=== PATIENT | female | born 1990 | race Caucasian/White ===

== ENCOUNTER 2017-11-21 15:53 | Emergency (ER) | payer OTHER ==
[2017-11-21] MEDS ORDERED: Bacitracin Zinc 1 Packet ONE (16:11)
[2017-11-21 17:57] LABS: HIV (1/2) Antibody/Antigen Non-Reactive (NonReactive); HIV 1/2 INDEX 0.22 S/CO (<1.00); Hep C IgG Ab Non-Reactive (NonReactive); Hep C Index 0.11 S/CO (0-0.79)
[2017-11-21 18:47] LABS: Hep B Surf AB Reactive (NonReactive)
[2017-11-21 18:48] LABS: HBSAB Concentration 478.12 mIU/mL
== END 2017-11-21 16:44 | disposition home or self-care (01) ==
LOC: ERS 15:53
DX: S50.811A Abrasion of right forearm, initial encounter (principal); E03.9 Hypothyroidism, unspecified; Z57.8 Occupational exposure to other risk factors; X58.XXXA Exposure to other specified factors, initial encounter
CPT/HCPCS: 36415; 86706; 86803; 87389; 99283

== ENCOUNTER → 2018-10-26 | Day surgery (SDC) | payer BC ==
[2018-10-26 16:35] VITALS: BMI 34.2
[2018-10-26 18:11] LABS: Bilirubin Negative (Negative); Blood, Urine Negative (Negative); Clarity CLEAR (Clear); Glucose, Urine (Dipstick) Negative (Negative); Leukocyte Moderate (Negative); Nitrite Negative (Negative); Protein, Urine (Dipstick) Negative (Neg-Trace); Specific Gravity, Urine 1.009 (1.002-1.036); Urobilinogen 0.2 mg/dL (0.2-1.0); pH, Urine 7.5 (5.0-9.0)
[2018-10-26 18:16] LABS: Bacteria/HPF Rare-Few HPF (None Seen); Hyaline Casts/LPF 0-3 HYALINE CAST LPF (0-3 Hyaline); Pathc Cast-AUWi Flag 0.14 (0-2.49); RBC/HPF 0-3 HPF (0-3); Squamous Epithelial 0-3 HPF (0-3)
[2018-10-26 18:49] LABS: #Eosinphils 0.1 thou/uL (0.0-0.7); #Lymphocytes 2.3 thou/uL (1.20-3.40); #Neutrophils 11.5 thou/uL (1.40-6.50); %Basophils 0.2 % (0.0-1.0); %Eosinophils 0.7 % (0.0-10.0); %Lymphocytes 15.2 % (21.0-51.0); %Monocytes 6.4 % (0.0-10.0); %Neutrophils 77.5 % (42.0-75.0); Hemoglobin 12.4 g/dL (12.0-16.0); Mean Corpuscular HGB CONC 34.2 g/dL (32.0-36.0); Mean Corpuscular Hemoglobin 31.7 pg (27.0-31.0); Mean Corpuscular Volume 92.9 fL (78.0-98.0); Mean Platelet Volume 8.2 fL (7.4-10.4); Platelet Count 208 thou/uL (130-400); RBC Distribution Width 12.6 % (11.5-14.5); Red Blood Cell (RBC) Count 3.92 mill/uL (4.20-5.40); White Blood Cell (WBC) Count 14.8 thou/uL (4.8-10.8)
[2018-10-26 19:07] LABS: ALT (SGPT) 20 U/L (8-55); AST (SGOT) 20 U/L (5-34); Albumin 3.3 g/dL (3.5-5.0); Alkaline Phosphatase 123 U/L (40-150); Anion Gap 13 mmol/L (10-20); BUN (Urea Nitrogen) 8 mg/dL (7.0-18.7); Bilirubin, Total 0.2 mg/dL (0.2-1.2); Calc. Creatinine Clearance 215 mL/min (70-130); Calcium 9.8 mg/dL (7.8-10.44); Carbon Dioxide 23 mmol/L (22-29); Chloride 105 mmol/L (98-107); Estimated GFR-MDRD Greater than 90; Glucose 83 mg/dL (70-105); Potassium 3.9 mmol/L (3.5-5.1); Protein, Total 6.3 g/dL (6.0-8.3); Sodium 137 mmol/L (136-145)
--- NOTE | 2018-10-27 08:30 | SS ---
DATE OF ADMISSION: 10/26/2018 DATE OF DISCHARGE: 10/26/2018 LABOR AND DELIVERY TRIAGE NOTE REGULAR PHYSICIAN: Minnie Lyon MD EVALUATING PHYSICIAN: Osbaldo Dudley MD CHIEF COMPLAINT: Elevated blood pressures in clinic. HISTORY OF PRESENT ILLNESS: Ms. Oswald is a 28-year-old white G1, P0 with an estimated date of confinement of 11/10/2018, who was seen at [facility] today with elevated blood pressures. Blood pressures there were apparently 140/72 and 142/78. She denies headache or visual changes. She denies contractions or leakage of fluid. Her care has been with Dr. Lyon and has been uncomplicated. PAST MEDICAL HISTORY: Hypothyroidism. CURRENT MEDICATIONS: 1. vitamins. 2. Synthroid 0.125 mg daily. PAST SURGICAL HISTORY: Open reduction of her fracture of her left hand. ALLERGIES: NO KNOWN ALLERGIES. SOCIAL HISTORY: She denies tobacco, alcohol, or drug use. PHYSICAL EXAMINATION: VITAL SIGNS: Blood pressures in triage are reassuring. Initial blood pressure is 112/73. She is afebrile. ABDOMEN: Soft and nontender. PELVIS: heart rate tracing is reassuring with spontaneous accelerations. There are no decelerations. An occasional uterine contraction is seen. LABORATORY DATA: White count 14.8, hemoglobin and hematocrit 12.4 and 36.4 respectively, and platelet count 208,000. Chemistries show a creatinine of 0.66. Total bilirubin 0.2. AST and ALT are both normal at 20 and 20 respectively. Urinalysis shows no urinary protein. ASSESSMENT: 1. 38-week intrauterine . 2. No evidence of preeclampsia at this time. PLAN: The patient will be discharged to home. Preeclampsia precautions were reviewed with her in detail, and she is told to return for headache, blurry vision, or right upper quadrant pain. She voices understanding of her discharge instructions. She is a nurse. She is discharged home in good condition. Job ID: [id number]
== END ==
LOC: L&D/OP 15:51
PROVIDERS: ATTEND Student in an Organized Health Care Education/Training Program
DX: O99.89 Other specified diseases and conditions complicating pregnancy, childbirth and the puerperium (principal); R03.0 Elevated blood-pressure reading, without diagnosis of hypertension; Z3A.38 38 weeks gestation of pregnancy
CPT/HCPCS: 36415; 80053; 81001; 85025

== ENCOUNTER 2018-11-10 11:33 | Inpatient (IN) | payer BC ==
[2018-11-15] MEDS ORDERED: Bupivacaine 0.25% HCL 30 ML VIAL ONE (11:11)
[2018-11-15] MEDS: Lactated Ringer's 1,000 ML IV SCH (23:50)
[2018-11-16] MEDS ORDERED: HYDROcodone/Acetaminophen 5/325 mg Tablet PO PRN (00:03)
[2018-11-16] MEDS ORDERED: Ondansetron PF 4 MG/2 ML Vial IVP PRN ×2 (00:03→21:25)
[2018-11-16] MEDS ORDERED: NS w/ Oxytocin 10 units 500 ML IV SCH (00:03)
[2018-11-16] MEDS ORDERED: Misoprostol 200 MCG TAB PR PRN (00:03)
[2018-11-16] MEDS ORDERED: Acetaminophen 500 MG TAB PO PRN (00:03)
[2018-11-16] MEDS ORDERED: Promethazine HCl 25 MG/ML VIAL IM PRN (00:03)
[2018-11-16] MEDS ORDERED: Lidocaine 1% (PF) 30 ML VIAL SC PRN (00:03)
[2018-11-16] MEDS ORDERED: Carboprost 250 MCG/ML AMP IM PRN (00:03)
[2018-11-16] MEDS ORDERED: Methylergonovine 0.2 MG/ML VIAL IM PRN (00:03)
[2018-11-16] MEDS ORDERED: Ibuprofen 800 MG TAB PO PRN (00:03)
[2018-11-16] MEDS ORDERED: Diphenoxylate HCl/Atropine Tablet PO PRN (00:03)
[2018-11-16 00:20] LABS: Hemoglobin 13.1 g/dL (12.0-16.0); Mean Corpuscular HGB CONC 33.1 g/dL (32.0-36.0); Mean Corpuscular Hemoglobin 30.9 pg (27.0-31.0); Mean Corpuscular Volume 93.2 fL (78.0-98.0); Mean Platelet Volume 8.9 fL (7.4-10.4); Platelet Count 209 thou/uL (130-400); RBC Distribution Width 12.3 % (11.5-14.5); Red Blood Cell (RBC) Count 4.24 mill/uL (4.20-5.40); White Blood Cell (WBC) Count 16.4 thou/uL (4.8-10.8)
[2018-11-16] MEDS: Misoprostol 100 MCG TAB VAG SCH ×3 (00:25→06:43)
[2018-11-16 00:58] VITALS: BMI 34.0
[2018-11-16 01:02] LABS: Syphilis Antibody Nonreactive (Nonreactive); Syphilis Antibody Index 0.05 S/CO (<1.00 Non-Reactive)
[2018-11-16 01:03] LABS: HBSAg Index 0.32 S/CO (0-0.99); Hep B Surf Ag Non-Reactive S/CO (NonReactive)
[2018-11-16] MEDS: Lactated Ringer's 1,000 ML IV SCH ×3 (06:43→11:30)
[2018-11-16] MEDS: Butorphanol Tartrate 1 MG/ML VIAL SLOW IVP PRN ×2 (07:08→09:00)
[2018-11-16] MEDS ORDERED: Fentanyl 4 mcg/Bup 0.1% Cadd 100 ML ONE ×2 (07:56→15:38)
--- NOTE | 2018-11-16 08:07 | PDOC.LDHP ---
Labor and Delivery H&P Chief complaint: scheduled induction HPI: 28yo at 40w6d by LMP for IOL. s/p 2 cytotec overnight, SROM 0620, clear, + painful contractions Current gestational age (weeks): 40 Due date: 11/10/18 Dating criteria: last menstrual period Grav: 1 Para: 0 Current complications: none Abnormal US findings: No Past Medical History: hypothyroid, scoliosis Current medications: pre- vitamins, other (levothyroxine 125mcg) Previous surgical history: other (left hand surgery) Allergies/Adverse Reactions: Allergies Allergy/AdvReac Type Severity Reaction Status Date / Time No Known Allergies Allergy Verified 11/15/18 23:38 Social history: none - Physical Exam Vital signs reviewed and normal: yes General: breathing through contractions Heart: RRR Lungs: CTAB Abdomen: gravid Extremeties: no edema FHT: category 1 Kieler contractions every: 2-3min - Vaginal Exam cm dilated: 3 Effacement: 75% Station: -1 (by RN) - OB Labs Blood type: A RH: positive Antibody Screen: negative HIV: negative RPR: negative HEPSAg: negative 1 hour GCT: negative GBS: negative Urine drug screen: negative Rubella: immune - Assessment L&D Assessment: medically indicated induction - Plan Plan: admit to L&D, cervical ripening, labor augmentation if indicated, informed consent obtained, anesthesia consult for pain management
[2018-11-16] MEDS: NS / Oxytocin 40 units/1000ml 1,000 ML IV PRN ×2 (16:50→19:45)
--- NOTE | 2018-11-16 17:17 | PDOC.OPDEL ---
OB Operative/Delivery Note Delivery Dr/Surgeon: Sonali Assist: Count, MS3 Pre-Delivery Diagnosis: medically indicated induction Procedure/Post Delivery Dx: spontaneous vaginal delivery Weeks gestation: 40 Anesthesia: epidural - Findings A Sex: male Weight: 8 lb 13 oz - 1 min: 9 - 5 min: 9 - Additional Findings/Plan Placenta delivered: spontaneous Repaired Obstetrical Laceration: 1st degree Estimated blood loss: 904 qbl cc Compilations/Other Findings: uterine atony several minutes after finishing delivery/repair, Dr Thomsa called and did manual sweep of uterus to clear out clots and bladder was drained , steady trickle of blood was resolved following this and fundus was firm. Post delivery plan: routine recovery
[2018-11-16] MEDS ORDERED: Milk Of Magnesia 30 ML UDCUP PO PRN (21:25)
[2018-11-16] MEDS ORDERED: diphenhydrAMINE 25 MG CAP PO PRN (21:25)
[2018-11-16] MEDS ORDERED: NS / Oxytocin 40 units/1000ml 1,000 ML IV SCH (21:25)
[2018-11-16] MEDS ORDERED: Benzocaine/Menthol 20-0.5% 60 ML CAN TOP PRN (21:25)
[2018-11-16] MEDS ORDERED: Acetaminophen/Codeine 30-300mg Tablet PO PRN ×2 (21:25)
[2018-11-16] MEDS ORDERED: Lanolin Ointment 7 GM TUBE TOP PRN (21:25)
[2018-11-16] MEDS ORDERED: Preparation H Ointment 28 GM TUBE PR PRN (21:25)
[2018-11-16] MEDS ORDERED: Bisacodyl 10 MG SUPP PR PRN (21:25)
[2018-11-16] MEDS ORDERED: Adacel (T-DAP) 0.5 ML SYRINGE IM ONE (21:25)
[2018-11-16] MEDS: Ibuprofen 800 MG TAB PO SCH (22:20)
[2018-11-16] MEDS: Docusate Calcium (SURFAK) 240 MG CAP PO SCH (22:22)
[2018-11-17] MEDS: Ibuprofen 800 MG TAB PO SCH ×3 (06:31→21:46)
--- NOTE | 2018-11-17 07:51 | PDOC.PP ---
Post Progress Note Post Day #: 1 PO intake tolerated: yes Flatus: yes Ambulation: yes Vital Signs (12 hours) Temp Pulse Resp BP Pulse Ox 11/17/18 01:00 98.3 F 72 18 107/59 L 11/16/18 22:15 98.7 F 84 18 117/69 11/16/18 22:05 98 Weight Weight 230 lb - Physical Examination General: NAD Respiratory: non-labored breathing Abdominal: no distention, appropriately TTP Fundus firm & at: umb Skin: no rash Neurological: no gross focal deficits Psychiatric: normal affect Result Diagrams: 11/15/18 23:50 Additional Labs: Post Labs Blood Type A POSITIVE 11/15/18 23:50 Hep Bs Antigen Non-Reactive S/CO (NonReactive) 11/15/18 23:50 - Assessment/Plan PPD1 s/p TSVD VSSAF Doing well lochia appropriate PPH hgb pending this am, no s/sx anemia LC pending Rh pos RImm Cont PP care.
[2018-11-17 08:32] LABS: Mean Corpuscular HGB CONC 32.1 g/dL (32.0-36.0); Mean Corpuscular Hemoglobin 30.5 pg (27.0-31.0); Mean Corpuscular Volume 94.9 fL (78.0-98.0); Mean Platelet Volume 8.8 fL (7.4-10.4); Platelet Count 172 thou/uL (130-400); RBC Distribution Width 12.4 % (11.5-14.5); Red Blood Cell (RBC) Count 3.27 mill/uL (4.20-5.40); White Blood Cell (WBC) Count 13.4 thou/uL (4.8-10.8)
[2018-11-17] MEDS: Prenatal Vitamin 1 TAB PO SCH (09:27)
[2018-11-17] MEDS: Ferrous Sulfate 325 MG TAB PO SCH ×2 (09:28→18:34)
[2018-11-17] MEDS: Docusate Calcium (SURFAK) 240 MG CAP PO SCH ×2 (09:29→21:46)
--- NOTE | 2018-11-18 04:12 | PDOC.PP ---
Post Progress Note Post Day #: 2 Subjective: Patient doing well this AM. No significant overnight events. PO intake tolerated: yes Flatus: yes Ambulation: yes Vital Signs (12 hours) Temp Pulse Resp BP Pulse Ox 11/17/18 20:10 98.5 F 92 18 122/78 98 Weight Weight 104.326 kg - Physical Examination General: NAD Cardiovascular: no m/r/g, RRR Respiratory: clear to auscultation bilaterally, non-labored breathing Abdominal: + bowel sounds, lochia (minimal), appropriately TTP Neurological: no gross focal deficits Psychiatric: A&Ox3, normal affect Result Diagrams: 11/17/18 08:02 Additional Labs: Post Labs Blood Type A POSITIVE 11/15/18 23:50 Hep Bs Antigen Non-Reactive S/CO (NonReactive) 11/15/18 23:50 (1) (spontaneous vaginal delivery) Code(s): O80 - ENCOUNTER FOR FULL-TERM UNCOMPLICATED DELIVERY Status: Acute - Assessment/Plan PPD #2 s/p TSVD VSSAF Doing well, lochia appropriate PPH hgb 10 from 13.1, no s/sx anemia, VSS well, has seen LC Rh pos RImm Cont PP care. Dispo: D/C home today.
[2018-11-18] MEDS: Ibuprofen 800 MG TAB PO SCH (05:54)
[2018-11-18] MEDS ORDERED: Levothyroxine Sodium 125 MCG TAB PO SCH (06:00)
[2018-11-18] MEDS ORDERED: Levothyroxine 150 MCG TAB PO SCH (06:00)
[2018-11-18] MEDS: Ferrous Sulfate 325 MG TAB PO SCH (07:50)
[2018-11-18 08:59] VITALS: BP 118/61; TEMP 98.8
[2018-11-18] MEDS: Docusate Calcium (SURFAK) 240 MG CAP PO SCH (09:24)
[2018-11-18] MEDS: Prenatal Vitamin 1 TAB PO SCH (09:24)
== END 2018-11-18 11:20 | disposition home or self-care (01) | DRG 807 ==
LOC: EDSTATUS 15:13 → L&D 11-15 23:05 → 3SW 11-16 22:14
PROVIDERS: ADMIT Student in an Organized Health Care Education/Training Program; ATTEND Student in an Organized Health Care Education/Training Program
PROC: 10E0XZZ Delivery of Products of Conception, External Approach (ICD-10-PCS; principal; 2018-11-16)
PROC: 3E0P7VZ Introduction of Hormone into Female Reproductive, Via Natural or Artificial Opening (ICD-10-PCS; 2018-11-16)
PROC: 0HQ9XZZ Repair Perineum Skin, External Approach (ICD-10-PCS; 2018-11-16)
DX: O48.0 Post-term pregnancy (principal); Z37.0 Single live birth; Z3A.40 40 weeks gestation of pregnancy; O99.284 Endocrine, nutritional and metabolic diseases complicating childbirth; E03.9 Hypothyroidism, unspecified; Z98.890 Other specified postprocedural states; O70.0 First degree perineal laceration during delivery; O75.89 Other specified complications of labor and delivery
CPT/HCPCS: 36415; 51702; 85027; 86780; 86850; 86900; 86901; 87340; 90715; J0595; J2001; J2405; S0020